=== PATIENT | female | born 1945 | race Caucasian/White ===

== ENCOUNTER 2025-01-17 18:23 | Emergency (ER) | payer OTHER ==
[~2025-01-17] VITALS: Ht 157.5 cm; Wt 60.1 kg
[2025-01-17] MEDS: ALBUTEROL SULF 2.5 MG/0.5ML(0.5%) NEB SOLN NEB ONE (19:04)
[2025-01-17] MEDS: IPRATROPIUM BROM 0.5 MG/2.5ML INH SOL NEB ONE (19:04)
--- NOTE | 2025-01-17 19:18 | DVH ---
EXAM: XY CHEST PORTABLE CLINICAL HISTORY: Chest pain TECHNIQUE: Single AP view of the chest WID: COMPARISON: None FINDINGS: Lines and tubes: cholecystectomy clips are seen. Chest: The heart size and pulmonary vasculature is within normal limits. Calcified plaque projects over the aortic arch. No pleural effusion, pneumothorax, or consolidation. The osseous structures are grossly intact. Multilevel thoracic spondylosis. IMPRESSION: 1. No acute cardiopulmonary abnormality.
[2025-01-17 19:35] LABS: Hematocrit 43.3 % (36.0-46.0); Hemoglobin 14.6 g/dL (12.2-16.2); Mean Corpuscular Hemoglobin 28.5 pg (28.0-32.0); Mean Corpuscular Volume 84.3 fL (80.0-100.0); Nucleated Red Blood Cells % 0.1 %
[2025-01-17 19:43] LABS: Chloride 98 mmol/L (98-107); Sodium 139 mmol/L (136-145)
[2025-01-17 19:44] LABS: Anion Gap 14 (5-15); Calcium 9.1 mg/dL (8.7-10.4); Carbon Dioxide 27 mmol/L (20-31)
[2025-01-17 19:48] LABS: Potassium 2.9 mmol/L (3.5-5.1)
[2025-01-17 19:49] LABS: BUN/Creatinine Ratio 13.8 (10.0-20.0); Blood Urea Nitrogen 21 mg/dL (9-23)
[2025-01-17 19:50] LABS: Glucose 129 mg/dL (74-106)
[2025-01-17] MEDS: SODIUM CHLORIDE 0.9% 1,000 ML IV ONE (19:55)
[2025-01-17 20:29] LABS: COVID19 ANTIGEN SOFIA FIA POSITIVE (NEGATIVE)
[2025-01-17 23:31] LABS: Urine Budding Yeast OCCASIONAL /hpf (None Seen); Urine Protein, UAD Negative (Negative)
[2025-01-17] MEDS ORDERED: BENZ100C97 PO (23:54)
[2025-01-17] MEDS ORDERED: BACDST PO (23:54)
[2025-01-17] MEDS ORDERED: ACET500T58 PO (23:54)
--- NOTE | 2025-01-17 23:55 | ED.PDOC ---
History of Present Illness HPI Comments This patient is a 79-year-old female who arrives the ED today with complaints of cough, congestion, body aches, intermittent fever and chest tightness for the past several days. Patient states that she was seen at urgent care and diagnosed with COVID-19. Patient states the facility told her to come to the ED for a chest x-ray evaluation. Vital signs were stable on arrival. 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 Family History Family History: Reviewed,noncontributory to illness, No family hx of Cancer, No family hx of DM, No family hx of Heart mathew, No family hx of HTN, No family hx ofKidney mathew, No family hx of Liver mathew, No family hx of Lung mathew, No family hx of Stroke Social History Smoker: Non-Smoker Alcohol: Denies ETOH Use Drugs: Denies Drug Use Lives In: Home Constitutional: reports: fatigue, fever, weakness; denies: chills, diaphoresis, malaise, sweats, others EENTM: reports: nose congestion; denies: blurred vision, double vision, ear bleeding, ear discharge, ear drainage, ear pain, ear ringing, eye pain, eye redness, hearing loss, mouth pain, mouth swelling, nasal discharge, nose bleeding, nose pain, photophobia, tearing, throat pain, throat swelling, voice changes, others Respiratory: reports: cough, shortness of breath; denies: hemoptysis, orthopnea, SOB at rest, SOB with excertion, stridor, wheezing, others Cardiovascular: denies: chest pain, dizzy spells, diaphoresis, Dyspnea on exertion, edema, irregular heart beat, left arm pain, lightheadedness, palpitations, PND, syncope, others Gastrointestinal: denies: abdomen distended, abdominal pain, blood streaked bowels, constipated, diarrhea, dysphagia, difficulty swallowing, hematemesis, melena, nausea, poor appetite, poor fluid intake, rectal bleeding, rectal pain, vomiting, others Genitourinary: denies: abnormal vagina bleeding, burning, dyspareunia, dysuria, flank pain, frequency, hematuria, incontinence, pain, , vagina discharge, urgency, others Neurological: denies: dizziness, fainting, headache, left sided numbness, left sided weakness, numbness, paresthesia, pre-existing deficit, right sided numbness, right sided weakness, seizure, speech problems, tingling, tremors, weakness, others Musculoskeletal: denies: back pain, gout, joint pain, joint swelling, muscle pain, muscle stiffness, neck pain, others Integumetry: denies: bruises, change in color, change in hair/nails, dryness, laceration, lesions, lumps, rash, wounds, others Allergic/Immunocompromised: denies: Difficulty Healing, Frequent Infections, Hives, Itching, others Hematologic/Lymphatic: denies: anemia, blood clots, easy bleeding, easy bruising, swollen glands, others Endocrine: denies: excessive hunger, excessive sweating, excessive thirst, excessive urination, flushing, intolerance to cold, intolerance to heat, unexplained weight gain, unexplained weight loss, others Psychiatric: denies: anxiety, bipolar disorder, depression, hopeless, panic disorder, schizophrenia, sleepless, suicidal, others Physical Exam General Appearance: Moderate Distress (Pitl-pt-epkozswy distress due to patient's chief complaints.), Normal HEENT: Normal ENT Inspection, Pharynx Normal, TMs Normal Neck: Full Range of Motion, Non-Tender, Normal, Normal Inspection Respiratory: Chest Non-Tender, Lungs Clear, No Accessory Muscle Use, No Resp iratory Distress, Normal Breath Sounds, Other (Unremarkable auscultation bilateral lung khan.) Cardiovascular: No Edema, No JVD, No Murmur, No Gallop, Normal Peripheral Pulses, Regular Rate/Rhythm Breast Exam: Deferred Gastrointestinal: No Organomegaly, Non Tender, No Pulsatile Mass, Normal Bowel Sounds, Soft Genitalia: Deferred Pelvic: Deferred Rectal: Deferred Extremities: Normal inspection, Non-tender Neurologic: Alert Cerebellar Function: NOT DONE Reflexes: NOT DONE Skin: Dry, Normal Color, Warm Lymphatic: No Adenopathy Was a procedure done? Was a procedure done?: No Differential Dx Considerations may include: Sepsis, electrolyte abnormality, COVID-19, UTI, viral illness, pneumonia X-Ray, Labs, Meds, VS Vital Signs Date Time Temp Pulse Resp B/P (MAP) Pulse Ox O2 Delivery O2 Flow Rate FiO2 01/17/25 19:37 98.7 107 20 120/77 (91) 95 98.7 01/17/25 19:37 107 95 Room Air 01/17/25 19:04 16 94 Room Air* 0 21 01/17/25 18:25 98.7 93 16 117/77 95 98.7 Lab Test 01/17/25 22:30 01/17/25 20:22 01/17/25 19:30 01/17/25 19:24 Range/Units Urine Color Colorless Yellow Urine Clarity Turbid H Clear Urine pH 5.5 5.0-9.0 Urine Specific [place] 1.009 1.001-1.035 Urine Protein Negative Negative Urine Ketones 1+ H Negative Urine Blood Negative Negative /uL Urine Nitrite Negative Negative Urine Bilirubin Negative Negative Urine Urobilinogen Normal Negative mg/dL Urine Leukocyte Esterase 3+ Negative /uL Urine RBC 1 0 - 4 /hpf Urine Microscopic WBC 45 H 0-5 /HPF Urine Squamous Epithelial Cells Few <5 /hpf Urine Bacteria Few H None Seen /hpf Urine Yeast (Budding) Occasional None Seen /hpf Urine Glucose Normal Normal mg/dL Troponin I High Sensitivity 3 L 3 L </=34 ng/L SARS-CoV-2 Antigen (Rapid) Positive NEGATIVE White Blood Count 9.4 4.4-10.8 10^3/uL Red Blood Count 5.14 4.0-5.20 10^6/uL Hemoglobin 14.6 12.2-16.2 g/dL Hematocrit 43.3 36.0-46.0 % Mean Corpuscular Volume 84.3 80.0-100.0 fL Mean Corpuscular Hemoglobin 28.5 28.0-32.0 pg Mean Corpuscular Hemoglobin Concent 33.8 32.0-36.0 g/dL Red Cell Distribution Width 14.2 11.8-14.3 % Platelet Count 251 140-450 10^3/uL Mean Platelet Volume 8.3 6.9-10.8 fL Neutrophils (%) (Auto) 64.4 37.0-80.0 % Lymphocytes (%) (Auto) 25.8 10.0-50.0 % Monocytes (%) (Auto) 9.0 0.0-12.0 % Eosinophils (%) (Auto) 0.3 0.0-7.0 % Basophils (%) (Auto) 0.5 0.0-2.0 % Neutrophils # (Auto) 6.1 1.6-8.6 10 ^3/uL Lymphocytes # (Auto) 2.4 0.4-5.4 10 ^3/uL Monocytes # (Auto) 0.9 0-1.3 10 ^3/uL Eosinophils # (Auto) 0 0-0.8 10 ^3/uL Basophils # (Auto) 0 0-0.2 10 ^3/uL Nucleated Red Blood Cells 0.1 % Sodium Level 139 136-145 mmol/L Potassium Level 2.9 L 3.5-5.1 mmol/L Chloride Level 98 98-107 mmol/L Carbon Dioxide Level 27 20-31 mmol/L Anion Gap 14 5-15 Blood Urea Nitrogen 21 9-23 mg/dL Creatinine 1.52 H 0.550-1.02 mg/dL Glomerular Filtration Rate Calc 35 >90 mL/min BUN/Creatinine Ratio 13.8 10.0-20.0 Serum Glucose 129 H 74-106 mg/dL Calcium Level 9.1 8.7-10.4 mg/dL B-Type Natriuretic Peptide 9.37 0-100 pg/mL Current Medications Medications (Trade) Dose Ordered Sig/Jamaal Route Start Time Stop Time Status Last Admin Albuterol (Ventolin Medneb) 2.5 mg ONCE ONCE NEB 01/17/25 18:45 01/17/25 18:46 DC 01/17/25 19:04 Ipratropium [place] (Atrovent Medneb) 0.5 mg ONCE ONCE NEB 01/17/25 18:45 01/17/25 18:46 DC 01/17/25 19:04 Dexamethasone Sodium Phosphate (Decadron Injection) 10 mg ONCE ONCE IM 01/17/25 18:45 01/17/25 18:46 DC 01/17/25 19:37 Sodium Chloride 1,000 ml @ 1,000 mls/hr Q1H ONCE IV 01/17/25 18:45 01/17/25 19:44 DC 01/17/25 19:55 X-Ray, Labs, Meds, VS Comment All studies performed the ED were evaluated by me personally. Serum studies were unremarkable for any systemic concerns, but urinalysis confirmed a UTI. COVID swab was positive for COVID-19 and chest x-ray was unremarkable for any acute intrapulmonary concerns or consolidation. Patient has COVID and a UTI. Patient has been given her 1st dose of antibiotics tonight and has been advised to utilize antibiotics as directed until completion. Additional medication as needed. Time of 1ST Reevaluation: 23:52 Reevaluation 1ST: Improved Consultation: PCP Patient Education/Counseling: Diagnosis, Treatment Family Education/Counseling: Diagnosis, Treatment SEPSIS Sepsis Screen Date sepsis recognized/suspect: Jan 17, 2025 Time Sepsis recognized/suspect: 1827 Recent Procedure: No On Antibiotic Therapy: No Respiratory Rate >20: No Heart Rate >90: No Temp<36 C (96.8 F) or >38.3 C: No SBP <90 or MAP <65 mmHG: No New Acute Mental Status Change: No Is the patient on CPAP, BIPAP,: No Physician Orders Electrocardigram (01/17/25 18:40) Heplock Iv (01/17/25 ) Chest Portable (01/17/25 18:40) Sulfamethoxazole W/Trimeth Tab (Bactrim (01/18/25 00:00) Potassium Effervesent Tab (Klor-Con/Ef) (01/18/25 00:00) Vital Signs Date Time Temp Pulse Resp B/P (MAP) Pulse Ox O2 Delivery O2 Flow Rate FiO2 01/17/25 19:37 98.7 107 20 120/77 (91) 95 98.7 01/17/25 19:37 107 95 Room Air 01/17/25 19:04 16 94 Room Air* 0 21 01/17/25 18:25 98.7 93 16 117/77 95 98.7 Laboratory Tests Test 01/17/25 19:24 White Blood Count 9.4 10^3/uL (4.4-10.8) Medications Medications Dose Ordered Sig/Jamaal Route Start Time Stop Time Status Last Admin Dose Admin Albuterol 2.5 mg ONCE ONCE NEB 01/17/25 18:45 01/17/25 18:46 DC 01/17/25 19:04 Dexamethasone Sodium Phosphate 10 mg ONCE ONCE IM 01/17/25 18:45 01/17/25 18:46 DC 01/17/25 19:37 Ipratropium [place] 0.5 mg ONCE ONCE NEB 01/17/25 18:45 01/17/25 18:46 DC 01/17/25 19:04 Sodium Chloride 1,000 ml @ 1,000 mls/hr Q1H ONCE IV 01/17/25 18:45 01/17/25 19:44 DC 01/17/25 19:55 Departure 1 Departure Time of Disposition: 23:53 Impression: Primary Impression: COVID-19 Additional Impression: Urinary tract infection Disposition: HOME / SELF CARE / HOMELESS Condition: Stable Additional Instructions: Advise utilizing antibiotics as directed until completion. Additional medication as needed. Advised good hydration and healthy nutrition throughout illness event. e-Prescriptions Benzonatate (Benzonatate) 100 Mg Cap 1 CAP PO Q8HP PRN, #20 CAP Prov: GRIS ROMAN 01/17/25 Acetaminophen (Acetaminophen) 500 Mg Tab 500 MG PO Q4HP PRN, #30 TAB Prov: GRIS ROMAN 01/17/25 Sulfamethoxazole W/Trimethopri (Bactrim Ds Tablet) 1 Tab Tb 1 TAB PO BID for 7 Days, #14 TAB Prov: GRIS ROMAN 01/17/25 Discharged With: Self, Spouse Critical Care Note Critical Care Time?: No Stability Stability form required: No Heart Score Heart Score: Heart Score Response (Comments) Value History N/A 0 EKG N/A 0 Age N/A 0 Risk Factors N/A 0 Troponin N/A 0 Total 0 GRIS ROMAN Jan 17, 2025 23:55
[2025-01-18] MEDS: POTASSIUM EFFERVESENT TAB 25 MEQ PO ONE (00:11)
[2025-01-18] MEDS: SULFAMETHOX W/TRIMETH(800/160MG) DS TAB PO ONE (00:11)
[2025-01-18 00:17] VITALS: BP 124/78; PULSE 92; RESP 18; TEMP 98.4; O2SAT 94
== END 2025-01-18 00:17 | disposition home or self-care (01) ==
LOC: ER 18:23
DX: U07.1 COVID-19 (principal); N39.0 Urinary tract infection, site not specified
CPT/HCPCS: 36415; 71045; 80048; 81001; 83880; 84484; 85025; 87426; 94640; 96360; 96372; 99284; J1100; J7030

== ENCOUNTER 2025-03-11 09:08 | Emergency (ER) | payer OTHER ==
[~2025-03-11] VITALS: Ht 157.5 cm; Wt 59.4 kg
[~2025-03-11 09:08] MED LIST: ACET500T58 PO; BACDST PO; BENZ100C97 PO
--- NOTE | 2025-03-11 10:54 | ED.PDOC ---
History of Present Illness HPI Comments 79-year-old female presents to the ER with prior surgical history with colonoscopy in the chief complaint of abdominal pain. Patient reports on having had pelvic pain associated with the rectal bleeding and nausea which all started last night. Denies any other symptoms at this time. Denies chills, fever, /V/D, SOB, CP. No other associated symptoms, modifiers, recent injuries or sick contacts present at this time. Chief Complaint: Abdominal Pain Time Seen by MD: 10:45 Reviewed Notes: Nurses Notes, Medications, Allergies Allergies: Coded Allergies: No Known Drug Allergy (Verified Allergy, Unknown, 01/17/25) Home Meds Active Scripts Ondansetron Odt 4MG Tab (ZOFRAN PO) 4 Mg Tb, 4 MG PO Q6HP PRN, #10 TAB ODT TAB-DISSOLVE IN MOUTH, THEN SWALLOW Prov:ROXANE MC [employer] 03/11/25 Ciprofloxacin Hcl (Ciprofloxacin Hcl) 500 Mg Tab, 1 TAB PO BID for 10 Days, #20 TAB Prov:ROXANE MC [employer] 03/11/25 Metronidazole (Flagyl) 500 Mg Tab, 1 TAB PO BID for 10 Days, #20 TAB Prov:ROXANE MC [employer] 03/11/25 Benzonatate (Benzonatate) 100 Mg Cap, 1 CAP PO Q8HP PRN, #20 CAP Prov:GRIS ROMAN PAC 01/17/25 Acetaminophen (Acetaminophen) 500 Mg Tab, 500 MG PO Q4HP PRN, #30 TAB Prov:GRIS ROMAN PAC 01/17/25 Sulfamethoxazole W/Trimethopri (Bactrim Ds Tablet) 1 Tab Tb, 1 TAB PO BID for 7 Days, #14 TAB Prov:GRIS ROMAN PAC 01/17/25 Information Source: Patient Mode of Arrival: Ambulatory Severity: Moderate Timing: Hours Duration: Since onset, Hours Prehospital treatment: None Past Medical History PAST MEDICAL HISTORY: Denies Surgical History (Other): Colonoscopy MANAGER ANALYSIS History: No Pertinent MANAGER ANALYSIS History Family History Family History: Reviewed,noncontributory to illness, Unknown Social History Smoker: Non-Smoker Alcohol: Denies ETOH Use Drugs: Denies Drug Use Lives In: Home Constitutional: denies: chills, diaphoresis, fatigue, fever, malaise, sweats, weakness, others EENTM: denies: blurred vision, double vision, ear bleeding, ear discharge, ear drainage, ear pain, ear ringing, eye pain, eye redness, hearing loss, mouth pain, mouth swelling, nasal discharge, nose bleeding, nose congestion, nose pain, photophobia, tearing, throat pain, throat swelling, voice changes, others Respiratory: denies: cough, hemoptysis, orthopnea, SOB at rest, shortness of breath, SOB with excertion, stridor, wheezing, others Cardiovascular: denies: chest pain, dizzy spells, diaphoresis, Dyspnea on exertion, edema, irregular heart beat, left arm pain, lightheadedness, p alpitations, PND, syncope, others Gastrointestinal: reports: abdominal pain (Pelvic area), rectal bleeding; denies: abdomen distended, blood streaked bowels, constipated, diarrhea, dysphagia, difficulty swallowing, hematemesis, melena, nausea, poor appetite, poor fluid intake, rectal pain, vomiting, others Genitourinary: denies: abnormal vagina bleeding, burning, dyspareunia, dysuria, flank pain, frequency, hematuria, incontinence, pain, , vagina discharge, urgency, others Neurological: denies: dizziness, fainting, headache, left sided numbness, left sided weakness, numbness, paresthesia, pre-existing deficit, right sided numbness, right sided weakness, seizure, speech problems, tingling, tremors, weakness, others Musculoskeletal: denies: back pain, gout, joint pain, joint swelling, muscle pain, muscle stiffness, neck pain, others Integumetry: denies: bruises, change in color, change in hair/nails, dryness, laceration, lesions, lumps, rash, wounds, others Allergic/Immunocompromised: denies: Difficulty Healing, Frequent Infections, Hives, Itching, others Hematologic/Lymphatic: denies: anemia, blood clots, easy bleeding, easy bruising, swollen glands, others Endocrine: denies: excessive hunger, excessive sweating, excessive thirst, excessive urination, flushing, intolerance to cold, intolerance to heat, unexplained weight gain, unexplained weight loss, others Psychiatric: denies: anxiety, bipolar disorder, depression, hopeless, panic disorder, schizophrenia, sleepless, suicidal, others All Other Systems: Reviewed and Negative Physical Exam General Appearance: No Apparent Distress, Normal HEENT: Normal ENT Inspection, Pharynx Normal, TMs Normal Neck: Full Range of Motion, Non-Tender, Normal, Normal Inspection Respiratory: Chest Non-Tender, Lungs Clear, No Accessory Muscle Use, No Respiratory Distress, Normal Breath Sounds Cardiovascular: No Edema, No JVD, No Murmur, No Gallop, Normal Peripheral Pulses, Regular Rate/Rhythm Breast Exam: Deferred Gastrointestinal: No Organomegaly, Non Tender, No Pulsatile Mass, Normal Bowel Sounds, Soft Genitalia: Deferred Pelvic: Deferred Rectal: Deferred Extremities: No calf tenderness, Normal capillary refill, Normal inspection, Normal range of motion, Non-tender, No pedal edema Musculoskeletal : Apperance: Normal Neurologic: Alert, sand slinger II-XII nml as Tested, No Motor Deficits, Normal Affect, Normal Mood, No Sensory Deficits Cerebellar Function: Normal Reflexes: Normal Skin: Dry, Normal Color, Warm Lymphatic: No Adenopathy Was a procedure done? Was a procedure done?: No Differential Dx Considerations may include: Gastritis, gastroenteritis, GI bleed, electrolyte abnormality, infectious etiology X-Ray, Labs, Meds, VS Vital Signs Date Time Temp Pulse Resp B/P (MAP) Pulse Ox O2 Delivery O2 Flow Rate FiO2 03/11/25 23:29 89 16 127/89 03/11/25 23:16 97.7 89 16 127/89 (102) 94 97.7 03/11/25 21:46 74 16 94 Room Air* 0 21 03/11/25 21:40 74 16 128/76 03/11/25 21:36 97.5 78 18 128/76 (93) 87 97.5 03/11/25 17:42 98.2 76 15 114/69 (84) 92 98.2 03/11/25 17:39 76 19 114/69 03/11/25 13:24 82 15 151/95 03/11/25 13:19 98.1 82 15 151/95 (113) 93 98.1 03/11/25 09:12 98.2 93 15 121/73 95 98.2 Lab Test 03/11/25 14:36 03/11/25 14:11 03/11/25 12:37 03/11/25 11:11 Range/Units Urine Color Light-yellow Yellow Urine Clarity Clear Clear Urine pH 6.0 5.0-9.0 Urine Specific [place] 1.047 H 1.001-1.035 Urine Protein Negative Negative Urine Ketones Negative Negative Urine Blood Negative Negative /uL Urine Nitrite Negative Negative Urine Bilirubin Negative Negative Urine Urobilinogen Normal Negative mg/dL Urine Leukocyte Esterase Negative Negative /uL Urine RBC 2 0 - 4 /hpf Urine Microscopic WBC 2 0-5 /HPF Urine Squamous Epithelial Cells Few <5 /hpf Urine Bacteria None seen None Seen /hpf Urine Glucose Normal Normal mg/dL Troponin I High Sensitivity < 3 L < 3 L 3 L </=34 ng/L White Blood Count 11.3 H 4.4-10.8 10^3/uL Red Blood Count 5.00 4.0-5.20 10^6/uL Hemoglobin 14.3 12.2-16.2 g/dL Hematocrit 42.5 36.0-46.0 % Mean Corpuscular Volume 85.0 80.0-100.0 fL Mean Corpuscular Hemoglobin 28.6 28.0-32.0 pg Mean Corpuscular Hemoglobin Concent 33.7 32.0-36.0 g/dL Red Cell Distribution Width 15.4 H 11.8-14.3 % Platelet Count 290 140-450 10^3/uL Mean Platelet Volume 8.9 6.9-10.8 fL Neutrophils (%) (Auto) 83.8 H 37.0-80.0 % Lymphocytes (%) (Auto) 9.8 L 10.0-50.0 % Monocytes (%) (Auto) 5.0 0.0-12.0 % Eosinophils (%) (Auto) 0.8 0.0-7.0 % Basophils (%) (Auto) 0.6 0.0-2.0 % Neutrophils # (Auto) 9.4 H 1.6-8.6 10 ^3/uL Lymphocytes # (Auto) 1.1 0.4-5.4 10 ^3/uL Monocytes # (Auto) 0.6 0-1.3 10 ^3/uL Eosinophils # (Auto) 0.1 0-0.8 10 ^3/uL Basophils # (Auto) 0.1 0-0.2 10 ^3/uL Nucleated Red Blood Cells 0.1 % Sodium Level 142 136-145 mmol/L Potassium Level 2.9 L 3.5-5.1 mmol/L Chloride Level 102 98-107 mmol/L Carbon Dioxide Level 26 20-31 mmol/L Anion Gap 14 5-15 Blood Urea Nitrogen 19 9-23 mg/dL Creatinine 1.04 H 0.550-1.02 mg/dL Glomerular Filtration Rate Calc 55 >90 mL/min BUN/Creatinine Ratio 18.3 10.0-20.0 Serum Glucose 121 H 74-106 mg/dL Lactic Acid Level 1.5 0.4-2.0 mmol/L Calcium Level 10.0 8.7-10.4 mg/dL Total Bilirubin 0.5 0.2-1.0 mg/dL Aspartate Amino Transferase (AST) 19 13-40 U/L Alanine Aminotransferase (ALT) 14 7-40 U/L Alkaline Phosphatase 77 46-116 U/L Total Protein 7.9 5.7-8.2 g/dL Albumin 5.1 H 3.2-4.8 g/dL Current Medications Medications (Trade) Dose Ordered Sig/Jamaal Route Start Time Stop Time Status Last Admin Sodium Chloride 1,000 ml @ 1,000 mls/hr Q1H ONCE IV 03/11/25 11:00 03/11/25 11:59 DC 03/11/25 13:24 Morphine Sulfate 4 mg ONCE ONCE IV 03/11/25 11:00 03/11/25 11:01 DC 03/11/25 13:24 Ondansetron HCl (Zofran) 4 mg ONCE ONCE IV 03/11/25 11:00 03/11/25 11:01 DC 03/11/25 13:24 Morphine Sulfate 4 mg ONCE ONCE IV 03/11/25 20:30 03/11/25 20:31 DC 03/11/25 21:40 Ondansetron HCl (Zofran) 4 mg ONCE ONCE IV 03/11/25 20:30 03/11/25 20:31 DC 03/11/25 21:40 Potassium Bicarbonate (Klor-Con/Ef) 50 meq ONCE ONCE PO 03/11/25 22:15 03/11/25 22:16 DC 03/11/25 22:57 Acetaminophen/ Hydrocodone Bitart (Mineral 5/325MG Tab) 1 tab ONCE ONCE PO 03/11/25 22:45 03/11/25 22:46 DC 03/11/25 22:59 Time of 1ST Reevaluation: 11:15 Reevaluation 1ST: Unchanged Patient Education/Counseling: Diagnosis, Treatment, Prognosis Family Education/Counseling: No Family Present SEPSIS Sepsis Screen Date sepsis recognized/suspect: Mar 11, 2025 Time Sepsis recognized/suspect: 913 Recent Procedure: No On Antibiotic Therapy: No Respiratory Rate >20: No Heart Rate >90: No Temp<36 C (96.8 F) or >38.3 C: No SBP <90 or MAP <65 mmHG: No New Acute Mental Status Change: No Is the patient on CPAP, BIPAP,: No Physician Orders Blood Culture (03/11/25 10:55) Ct Ab Pel With Iv Con Only (03/11/25 10:55) Discharge (03/11/25 22:43) Vital Signs Date Time Temp Pulse Resp B/P (MAP) Pulse Ox O2 Delivery O2 Flow Rate FiO2 03/11/25 23:29 89 16 127/89 03/11/25 23:16 97.7 89 16 127/89 (102) 94 97.7 03/11/25 21:46 74 16 94 Room Air* 0 21 03/11/25 21:40 74 16 128/76 03/11/25 21:36 97.5 78 18 128/76 (93) 87 97.5 03/11/25 17:42 98.2 76 15 114/69 (84) 92 98.2 03/11/25 17:39 76 19 114/69 03/11/25 13:24 82 15 151/95 03/11/25 13:19 98.1 82 15 151/95 (113) 93 98.1 03/11/25 09:12 98.2 93 15 121/73 95 98.2 Laboratory Tests Test 03/11/25 11:11 Lactic Acid Level 1.5 mmol/L (0.4-2.0) White Blood Count 11.3 10^3/uL (4.4-10.8) H Medications Medications Dose Ordered Sig/Jamaal Route Start Time Stop Time Status Last Admin Dose Admin Acetaminophen/ Hydrocodone Bitart 1 tab ONCE ONCE PO 03/11/25 22:45 03/11/25 22:46 DC 03/11/25 22:59 Morphine Sulfate 4 mg ONCE ONCE IV 03/11/25 20:30 03/11/25 20:31 DC 03/11/25 21:40 Ondansetron HCl 4 mg ONCE ONCE IV 03/11/25 20:30 03/11/25 20:31 DC 03/11/25 21:40 Potassium Bicarbonate 50 meq ONCE ONCE PO 03/11/25 22:15 03/11/25 22:16 DC 03/11/25 22:57 Departure 1 Departure Time of Disposition: 07:26 (Patient likely with a colitis and bright red blood per rectum. We will admit patient for further workup and expert consultation) Impression: Primary Impression: Bright red blood per rectum Additional Impression: Colitis Disposition: ADMITTED INPATIENT Admit to: Med Surg Condition: Serious e-Prescriptions Ondansetron Odt 4MG Tab (ZOFRAN PO) 4 Mg Tb 4 MG PO Q6HP PRN, #10 TAB ODT TAB-DISSOLVE IN MOUTH, THEN SWALLOW Prov: ROXANE MC NP 03/11/25 Ciprofloxacin Hcl (Ciprofloxacin Hcl) 500 Mg Tab 1 TAB PO BID for 10 Days, #20 TAB Prov: ROXANE MC [employer] 03/11/25 Metronidazole (Flagyl) 500 Mg Tab 1 TAB PO BID for 10 Days, #20 TAB Prov: ROXANE MC [employer] 03/11/25 Critical Care Note Critical Care Time?: No Stability Stability form required: No I personally scribed for VIKKI EDWARDS MD ([email or web address]) on 03/11/25 at 10:54. Elect ronically submitted by Aryan Kim ([email or web address]). VIKKI EDWARDS MD Mar 11, 2025 10:54
[2025-03-11 11:36] LABS: Hematocrit 42.5 % (36.0-46.0); Hemoglobin 14.3 g/dL (12.2-16.2); Mean Corpuscular Hemoglobin 28.6 pg (28.0-32.0); Mean Corpuscular Volume 85.0 fL (80.0-100.0); Nucleated Red Blood Cells % 0.1 %
[2025-03-11 11:51] LABS: Alanine Aminotransferase 14 U/L (7-40); Alkaline Phosphatase 77 U/L (46-116); Anion Gap 14 (5-15); BUN/Creatinine Ratio 18.3 (10.0-20.0); Bilirubin, Total 0.5 mg/dL (0.2-1.0); Blood Urea Nitrogen 19 mg/dL (9-23); Calcium 10.0 mg/dL (8.7-10.4); Carbon Dioxide 26 mmol/L (20-31); Chloride 102 mmol/L (98-107); Sodium 142 mmol/L (136-145); Total Protein 7.9 g/dL (5.7-8.2)
[2025-03-11 11:52] LABS: Albumin 5.1 g/dL (3.2-4.8); Glucose 121 mg/dL (74-106); Potassium 2.9 mmol/L (3.5-5.1)
[2025-03-11] MEDS: IOHEXOL 300 MG/ML 100ML BOTTLE IJ ONE (12:02)
[2025-03-11] MEDS: ONDANSETRON HCL 4 MG/2 ML VIAL IV ONE ×2 (13:24→21:40)
[2025-03-11] MEDS: SODIUM CHLORIDE 0.9% 1,000 ML IV ONE (13:24)
[2025-03-11] MEDS: MORPHINE SULFATE 4 MG/ML SYR/VIAL IV ONE ×2 (13:24→21:40)
--- NOTE | 2025-03-11 14:37 | DVH ---
CLINICAL HISTORY: abdominal pain brbpr TECHNIQUE: CT of the abdomen and pelvis was performed with IV contrast. This exam was performed according to our departmental dose optimization program. Up-to-date CT equipment and radiation dose reduction techniques are utilized as appropriate. CTDI 9.9 DLP 512 COMPARISON: None FINDINGS: Abdomen/Pelvis: The spleen, pancreas, adrenal glands, and bladder are unremarkable. There is diffuse hepatic steatosis. There are bilateral renal cysts. The gallbladder is absent. The abdominal aorta is normal in caliber with moderate atherosclerotic calcifications. There is no free intraperitoneal air or fluid. There is no enlarged abdominal or pelvic lymph node. There is no bowel wall thickening or dilatation. The appendix is normal. There is colonic diverticulosis. There is [id number] descending colon wall thickening. Other: The imaged lower thorax demonstrates 3-vessel coronary artery calcifications. There is lipomatous hypertrophy of the intra-atrial septum. No acute osseous abnormality is evident. IMPRESSION: [id number] descending colon wall thickening, favor colitis. Colonic diverticulosis. Cholecystectomy. 3-vessel coronary artery calcifications. 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
[2025-03-11 14:50] LABS: Urine Protein, UAD Negative (Negative)
[2025-03-11 21:46] VITALS: PULSE 74; RESP 16; O2SAT 94
--- NOTE | 2025-03-11 22:39 | DVHINCON2 ---
[facility] 03/11/25 2239: Date of service: Mar 11, [address] Rowland Reason for Consultation Medical Management History of Present Illness 79-year-old female with past medical history of hypertension, hyperlipidemia, chronic hypokalemia presents with complaints of abdominal pain, cramping hematochezia x1 day. Patient states she ate polio loco the night before bed around midnight started having abdominal pain with cramping. She believes she may have been having food poisoning. When she went to the bathroom she endorses bright red blood. Endorsed she had multiple episodes throughout the night. Last episode that occurred was at 11:00 a.m., 03/11/25. There are no complaints of fevers, chills, dizziness, shortness of breath, chest pain, palpitations, vomiting, dysuria. Social History Denies illicit drug use, smoking, alcohol consumption Allergies: Coded Allergies: No Known Drug Allergy (Verified Allergy, Unknown, 01/17/25) Home Meds Active Scripts Ondansetron Odt 4MG Tab (ZOFRAN PO) 4 Mg Tb, 4 MG PO Q6HP PRN, #10 TAB ODT TAB-DISSOLVE IN MOUTH, THEN SWALLOW Prov:[facility] 03/11/25 Ciprofloxacin Hcl (Ciprofloxacin Hcl) 500 Mg Tab, 1 TAB PO BID for 10 Days, #20 TAB Prov:[facility] 03/11/25 Metronidazole (Flagyl) 500 Mg Tab, 1 TAB PO BID for 10 Days, #20 TAB Prov:[facility] 03/11/25 Benzonatate (Benzonatate) 100 Mg Cap, 1 CAP PO Q8HP PRN, #20 CAP Prov:GRIS ROMAN PAC 01/17/25 Acetaminophen (Acetaminophen) 500 Mg Tab, 500 MG PO Q4HP PRN, #30 TAB Prov:GRIS ROMAN PAC 01/17/25 Sulfamethoxazole W/Trimethopri (Bactrim Ds Tablet) 1 Tab Tb, 1 TAB PO BID for 7 Days, #14 TAB Prov:GRIS ROMAN PAC 01/17/25 Review of Systems 10 systems reviewed and negative except as per HPI Vital Signs Vital Signs Date Time Temp Pulse Resp B/P (MAP) Pulse Ox O2 Delivery O2 Flow Rate FiO2 03/11/25 21:46 74 16 94 Room Air* 0 21 03/11/25 21:40 128/76 03/11/25 21:36 97.5 97.5 Physical Exam GENERAL: Patient appearing stated age, in no acute distress. Ambulating independently with steady gait. HEENT: Pupils equal and reactive to light and accommodation. Extraocular muscles intact. Mucous membranes moist. Conjunctivae pink. Anicteric sclerae. LUNGS: Bilateral air entry. No wheezes, rhonchi or rales. HEART: Regular rate and rhythm. Normal S1 and S2. ABDOMEN: BS normoactive, soft, nontender, and nondistended. No CVA tenderness. EXTREMITIES: No clubbing, cyanosis, edema. No calf tenderness. Pedal pulses 2+. NEUROLOGICAL: The patient is alert and oriented times 3. CN II-XII intact. No focal deficits on gross sensory or motor examination. Labs/Diagnostic Data Labs Test 03/11/25 14:36 03/11/25 14:11 03/11/25 11:11 Range/Units Urine Color Light-yellow Yellow Urine Clarity Clear Clear Urine pH 6.0 5.0-9.0 Urine Specific [place] 1.047 H 1.001-1.035 Urine Protein Negative Negative Urine Ketones Negative Negative Urine Blood Negative Negative /uL Urine Nitrite Negative Negative Urine Bilirubin Negative Negative Urine Urobilinogen Normal Negative mg/dL Urine Leukocyte Esterase Negative Negative /uL Urine RBC 2 0 - 4 /hpf Urine Microscopic WBC 2 0-5 /HPF Urine Squamous Epithelial Cells Few <5 /hpf Urine Bacteria None seen None Seen /hpf Urine Glucose Normal Normal mg/dL Troponin I High Sensitivity < 3 L </=34 ng/L White Blood Count 11.3 H 4.4-10.8 10^3/uL Red Blood Count 5.00 4.0-5.20 10^6/uL Hemoglobin 14.3 12.2-16.2 g/dL Hematocrit 42.5 36.0-46.0 % Mean Corpuscular Volume 85.0 80.0-100.0 fL Mean Corpuscular Hemoglobin 28.6 28.0-32.0 pg Mean Corpuscular Hemoglobin Concent 33.7 32.0-36.0 g/dL Red Cell Distribution Width 15.4 H 11.8-14.3 % Platelet Count 290 140-450 10^3/uL Mean Platelet Volume 8.9 6.9-10.8 fL Neutrophils (%) (Auto) 83.8 H 37.0-80.0 % Lymphocytes (%) (Auto) 9.8 L 10.0-50.0 % Monocytes (%) (Auto) 5.0 0.0-12.0 % Eosinophils (%) (Auto) 0.8 0.0-7.0 % Basophils (%) (Auto) 0.6 0.0-2.0 % Neutrophils # (Auto) 9.4 H 1.6-8.6 10 ^3/uL Lymphocytes # (Auto) 1.1 0.4-5.4 10 ^3/uL Monocytes # (Auto) 0.6 0-1.3 10 ^3/uL Eosinophils # (Auto) 0.1 0-0.8 10 ^3/uL Basophils # (Auto) 0.1 0-0.2 10 ^3/uL Nucleated Red Blood Cells 0.1 % Sodium Level 142 136-145 mmol/L Potassium Level 2.9 L 3.5-5.1 mmol/L Chloride Level 102 98-107 mmol/L Carbon Dioxide Level 26 20-31 mmol/L Anion Gap 14 5-15 Blood Urea Nitrogen 19 9-23 mg/dL Creatinine 1.04 H 0.550-1.02 mg/dL Glomerular Filtration Rate Calc 55 >90 mL/min BUN/Creatinine Ratio 18.3 10.0-20.0 Serum Glucose 121 H 74-106 mg/dL Lactic Acid Level 1.5 0.4-2.0 mmol/L Calcium Level 10.0 8.7-10.4 mg/dL Total Bilirubin 0.5 0.2-1.0 mg/dL Aspartate Amino Transferase (AST) 19 13-40 U/L Alanine Aminotransferase (ALT) 14 7-40 U/L Alkaline Phosphatase 77 46-116 U/L Total Protein 7.9 5.7-8.2 g/dL Albumin 5.1 H 3.2-4.8 g/dL Assessment -Colitis -Hematochezia, improved -Chronic hypokalemia The patient was seen and evaluated in ER treatment area. Patient's chart was r eviewed in this entirety, including lab work, imaging reports, physical assessment of patient. Emergency department evaluation CBC: W 11.3, H&H 14.3/42.5, PLT 290. CMP: Na142, K2.9, BUN 19 concrete 1.04, GFR 55. LA1.5, CT of the abdomen and pelvis with contrast was interpreted for the radiologist and reviewed per myself. Impression reads mild to moderate descending colon wall thickening favor colitis. Colonic diverticulosis. Cholecystectomy. Well in the emergency department the patient was treated with IV fluids, morphine for pain and Zofran for nausea. I also ordered supplemental potassium for potassium level 2.9. Upon my evaluation, the patient has remained hemodynamically stable as documented in the EHR, sitting in the lobby for an excess of 12 hours. Patient states that last episode of hematochezia occurred around 11 AM. Patient is able to ambulate independently with steady gait and lives at home with her . As such, I have discussed outpatient management with the patient which she agrees with. I have advised her that I will discharge her home with oral antibiotics and as needed Zofran for nausea. I have also instructed her to remain hydrated which she states she understands. At this time, the patient was discharged home. Plan/Recommendation Discharge home in stable condition O case hardener has been consulted to establish home safety evaluation, follow up visit at [facility] urgent care on Sunday for repeat CBC and BMP. Will also schedule for outpatient follow up with gastroenterology. The patient was provided with strict ER precautions, including, but not limited to dizziness, fevers, chills, shortness of breath, chest, pain, palpitations, nausea, vomiting, hematemesis, continued hematochezia, melena. If any of these occur or continue, please return to the nearest emergency department for further evaluation and treatment. Plan discussed with: Patient ZULEIMA MARRERO MD 03/12/25 1216: Allergies: Coded Allergies: No Known Drug Allergy (Verified Allergy, Unknown, 01/17/25) Home Meds Active Scripts Ondansetron Odt 4MG Tab (ZOFRAN PO) 4 Mg Tb, 4 MG PO Q6HP PRN, #10 TAB ODT TAB-DISSOLVE IN MOUTH, THEN SWALLOW Prov:[facility] 03/11/25 Ciprofloxacin Hcl (Ciprofloxacin Hcl) 500 Mg Tab, 1 TAB PO BID for 10 Days, #20 TAB Prov:[facility] NP 03/11/25 Metronidazole (Flagyl) 500 Mg Tab, 1 TAB PO BID for 10 Days, #20 TAB Prov:[facility] 03/11/25 Benzonatate (Benzonatate) 100 Mg Cap, 1 CAP PO Q8HP PRN, #20 CAP Prov:GRIS ROMAN PAC 01/17/25 Acetaminophen (Acetaminophen) 500 Mg Tab, 500 MG PO Q4HP PRN, #30 TAB Prov:GRIS ROMAN PAC 01/17/25 Sulfamethoxazole W/Trimethopri (Bactrim Ds Tablet) 1 Tab Tb, 1 TAB PO BID for 7 Days, #14 TAB Prov:GRIS ROMAN PAC 01/17/25 Additional Comments Additional Comments Additional Comments Patient's chart is reviewed and discussed with the nurse practitioner. Patient is seen evaluated and discharge from ER by nurse practitioner. I agree with his evaluation, documentation, assessment and care plan as outlined. [facility] NP Mar 11, 2025 22:39 ZULEIMA MARRERO MD Mar 12, 2025 12:16
[2025-03-11] MEDS ORDERED: METR-344 PO (22:41)
[2025-03-11] MEDS ORDERED: CIPR500T4 PO (22:42)
[2025-03-11] MEDS ORDERED: ZOFR4T PO (22:43)
[2025-03-11] MEDS: POTASSIUM EFFERVESENT TAB 25 MEQ PO ONE (22:57)
[2025-03-11] MEDS: HYDROcodone-ACET 5/325MG TAB PO ONE (22:59)
[2025-03-11 23:16] VITALS: TEMP 97.7; O2SAT 94
[2025-03-11 23:29] VITALS: BP 127/89; PULSE 89; RESP 16
== END 2025-03-12 00:09 | disposition home or self-care (01) ==
LOC: ER 09:08
DX: K62.5 Hemorrhage of anus and rectum (principal); K52.9 Noninfective gastroenteritis and colitis, unspecified; I10 Essential (primary) hypertension; E78.5 Hyperlipidemia, unspecified; Z79.899 Other long term (current) drug therapy
CPT/HCPCS: 36415; 74177; 80053; 81001; 83605; 84484; 85025; 87040; 96361; 96374; 96375; 96376; 99285; J2270; J2405; J7030; Q9967